=== PATIENT | male | born 1930 | race Caucasian/White ===

== ENCOUNTER 2018-07-11 21:00 | Inpatient (IN) | payer MEDICARE ==
[2018-07-11] MEDS ORDERED: Sodium Chloride 0.9% 1000 ML 1,000 ML IV STA (22:34)
[2018-07-11] MEDS ORDERED: Sodium Chloride 0.9% 1000 ML 1,000 ML ONE (23:01)
[2018-07-11 23:25] LABS: BASOPHIL % 0.2 % (0.0-0.4); Basophil (Absolute #) 0.01 (0-0.4); Eosinophil % 1.5 % (0.00-5.0); Eosinophil (Absolute #) 0.06 (0-0.5); Granulocyte Absolute (ANC) 2.87 (1.4-6.9); Granulocytes % 71.6 % (36.0-66.0); Hematocrit 37.3 % (42-50); Hemoglobin 11.9 gm/dl (12.5-18.0); Mean Cell Volume 101.4 fl (78-100); Mean Corpuscular Hemoglobin 32.3 pg (26-32); Mean Corpuscular Hgb Concent. 31.9 g/dl (32-36); Mean Platelet Volume 10.9 fl (6-9.5); Monocyte (Absolute #) 0.47 (0.0-1.3); Monocytes % 11.7 % (0.0-12.0); Platelet Count 124 K/mm3 (150-450); Red Blood Count 3.68 M/mm3 (4.1-5.6); Red Cell Distribution Width 13.2 % (11.5-14.0)
[2018-07-11 23:45] LABS: ALBUMIN 4.1 g/dL (3.5-5.0); ANION GAP 14.1 MEQ/L (5-15); BILIRUBIN,TOTAL 0.8 mg/dL (0.2-1.3); Calcium 8.9 mg/dL (8.4-10.2); Creatinine 1 2.02 mg/dL (0.66-1.25); Potassium 4.4 mmol/L (3.5-5.1); Total Protein 7.1 g/dL (6.3-8.2)
[2018-07-12 00:38] LABS: Appearance CLEAR (CLEAR); Bilirubin NEGATIVE (NEGATIVE); Blood MODERATE Ery/ul (0-5); Glucose NEGATIVE (NEGATIVE); Ketones NEGATIVE (NEGATIVE); Leukocyte Esterase NEGATIVE (NEGATIVE); Mucus SLIGHT /HPF (NEGATIVE); Nitrite NEGATIVE (NEGATIVE); Protein,Urine Dip NEGATIVE (Negative); RBC 0-2 /HPF (0-2); Specific Gravity 1.019 (1.005-1.025); Urobilinogen NEGATIVE mg/dL (0-1)
--- NOTE | 2018-07-12 01:47 | ERPHSYRPT ---
- History of Present Illness Historian: family Exam Limitations: other (Dementia) Patient Subjective Stated Complaint: Diarrhea and weakness. Blood in urine Triage Nursing Assessment: Patient brought back to ED via W/C and transferred to bed with assist of 2. Patient's family reports diarrhea since last night. Patient's family also reports increased weakness. Patient usually doesn't use a walker, but used one today. Patient hasn't urinated today. Patient Alert with confusion. Patient did wet bed this am and had blood mixed in urine. patient' s skin pink, warm and dry. Patient's lungs noted to be clear a/p matilda. BS X 4 and active. Physician History: Pt is a 87 y/o male that had a family gathering, where all of the family members developed severe diarrhea. Pt became weaker and weaker, and had no urine out put today. The pt has a h/o dementia, and has a palliative care specialist that is with him all the time, and family is keeping pt at his home. As pt was so weak , not at his baseline, and had no urine out put, the family brought him to the ED. Timing/Duration: day(s) Associated Symptoms: diarrhea, fatigue Allergies/Adverse Reactions: Penicillins Allergy (Verified 07/11/18 21:20) Home Medications: Colestipol HCl [Colestid] 2 tab PO HS 07/11/18 [History] Donepezil HCl 1 tab PO DAILY 07/11/18 [History] Lisinopril 1 tab PO DAILY 07/11/18 [History] Memantine HCl [Memantine HCl ER] 1 tab PO DAILY 07/11/18 [History] Hx Influenza Vaccination/Date Given: No Hx Pneumococcal Vaccination/Date Given: No Immunizations Up to Date: Yes - Review of Systems Constitutional: Other (Can't get ROS from the pt, secondary to dementia) - Past Medical History Pertinent Past Medical History: Yes Neurological History: Dementia ENT History: No Pertinent History Cardiac History: Hypertension Respiratory History: No Pertinent History Endocrine Medical History: No Pertinent History Musculoskeletal History: Arthritis GI Medical History: Gallbladder Disease Psycho-Social History: Depression - Past Surgical History Past Surgical History: Yes Neuro Surgical History: No Pertinent History Cardiac: No Pertinent History Respiratory: No Pertinent History Gastrointestinal: No Pertinent History, Cholecystectomy, Hemorrhoidectomy Genitourinary: No Pertinent History Musculoskeletal: Orthopedic Surgery Male Surgical History: No Pertinent History Other Surgical History: Matilda Knees- 1991. Gallbladder- 2015. Spinal fusion-1964 - Social History Smoking Status: Never smoker Exposure to second hand smoke: No Drug Use: none Patient Lives Alone: Yes - Nursing Vital Signs Nursing Vital Signs: Initial Vital Signs Temperature 97.8 F 07/11/18 21:21 Pulse Rate 63 07/11/18 21:21 Respiratory Rate 20 07/11/18 21:21 Blood Pressure 141/70 07/11/18 21:21 O2 Sat by Pulse Oximetry 94 L 07/11/18 21:21 Pain Scale Pain Intensity 0 - Physical Exam General Appearance: lethargy Respiratory Exam: normal breath sounds, lungs clear, No respiratory distress Cardiovascular Exam: regular rate/rhythm, normal heart sounds Gastrointestinal/Abdomen Exam: soft, No tenderness, No mass Neurologic Exam: other (Pt is not alert, and is not oriented. Can give minimal info.) SpO2: 98 - Course Nursing assessment & vital signs reviewed: Yes Ordered Tests: Active Orders 24 hr Category Date Time Status Catheter-Altoona Quinn STAT Care 07/11/18 22:34 Active IV Insertion STAT Care 07/11/18 22:34 Active AMYLASE Stat Lab 07/11/18 22:50 Completed BLOOD CULTURE Stat Lab 07/11/18 23:05 Received CBC W DIFF Stat Lab 07/11/18 22:50 Completed CMP Stat Lab 07/11/18 22:50 Completed LIPASE Stat Lab 07/11/18 22:50 Completed Lactic Acid Stat Lab 07/11/18 23:22 Completed Manual Differential NC Stat Lab 07/11/18 22:50 Completed UA W/RFX UR CULTURE Stat Lab 07/11/18 22:38 Completed Medication Summary Discontinued Medications Generic Name Dose Route Start Last Admin Trade Name Freq PRN Reason Stop Dose Admin Sodium Chloride 1,000 mls @ 999 mls/hr 07/11/18 22:34 07/12/18 01:04 Sodium Chloride 0.9% 1000 Ml IV 07/11/18 23:34 Infused .Q1H1M STA Infusion Sodium Chloride Confirm 07/11/18 23:01 Sodium Chloride 0.9% 1000 Ml Administered 07/11/18 23:02 Dose 1,000 mls @ ud .ROUTE .STK-MED ONE Lab/Rad Data: Laboratory Result Diagrams 07/11/18 22:50 07/11/18 22:50 Laboratory Results 07/11/18 07/11/1819 Range/Units 23:22 22:50 22:50 WBC 4.0 (4.0-10.5) K/mm3 RBC 3.68 L (4.1-5.6) M/mm3 Hgb 11.9 L (12.5-18.0) gm/dl Hct 37.3 L (42-50) % MCV 101.4 H (78-100) fl MCH 32.3 H (26-32) pg MCHC 31.9 L (32-36) g/dl RDW 13.2 (11.5-14.0) % Plt Count 124 L (150-450) K/mm3 MPV 10.9 H (6-9.5) fl Gran % 71.6 H (36.0-66.0) % Eos # (Auto) 0.06 (0-0.5) Absolute Lymphs (auto) 0.60 L (1.0-4.6) Absolute Monos (auto) 0.47 (0.0-1.3) Lymphocytes % 15.0 L (24.0-44.0) % Monocytes % 11.7 (0.0-12.0) % Eosinophils % 1.5 (0.00-5.0) % Basophils % 0.2 (0.0-0.4) % Absolute Granulocytes 2.87 (1.4-6.9) Basophils # 0.01 (0-0.4) Sodium 140 (137-145) mmol/L Potassium 4.4 (3.5-5.1) mmol/L Chloride 107 (98-107) mmol/L Carbon Dioxide 23 (22-30) mmol/L Anion Gap 14.1 (5-15) MEQ/L BUN 37 H (9-20) mg/dL Creatinine 2.02 H (0.66-1.25) mg/dL Estimated GFR 33.2 ML/MIN Glucose 101 (74-106) mg/dL Lactic Acid 1.0 (0.4-2.0) Calcium 8.9 (8.4-10.2) mg/dL Total Bilirubin 0.80 (0.2-1.3) mg/dL AST 24 (17-59) U/L ALT 16 (0-50) U/L Alkaline Phosphatase 113 (38-126) U/L Serum Total Protein 7.1 (6.3-8.2) g/dL Albumin 4.1 (3.5-5.0) g/dL Amylase 67 (30-110) U/L Lipase 22 L (23-300) U/L Urine Color (YELLOW) Urine Appearance (CLEAR) Urine pH (5-6) Ur Specific [place] (1.005-1.025) Urine Protein (Negative) Urine Ketones (NEGATIVE) Urine Blood (0-5) Zak/ul Urine Nitrite (NEGATIVE) Urine Bilirubin (NEGATIVE) Urine Urobilinogen (0-1) mg/dL Ur Leukocyte Esterase (NEGATIVE) Urine WBC (Auto) (0-5) /HPF Urine RBC (Auto) (0-2) /HPF U Epithel Cells (Auto) (FEW) /HPF Urine Bacteria (Auto) (NEGATIVE) /HPF Other Casts (Auto) (NEGATIVE) /LPF Urine Mucus (Auto) (NEGATIVE) /HPF Urine Culture Reflexed (NO) Urine Glucose (NEGATIVE) mg/dL 07/11/18 Range/Units 22:38 WBC (4.0-10.5) K/mm3 RBC (4.1-5.6) M/mm3 Hgb (12.5-18.0) gm/dl Hct (42-50) % MCV (78-100) fl MCH (26-32) pg MCHC (32-36) g/dl RDW (11.5-14.0) % Plt Count (150-450) K/mm3 MPV (6-9.5) fl Gran % (36.0-66.0) % Eos # (Auto) (0-0.5) Absolute Lymphs (auto) (1.0-4.6) Absolute Monos (auto) (0.0-1.3) Lymphocytes % (24.0-44.0) % Monocytes % (0.0-12.0) % Eosinophils % (0.00-5.0) % Basophils % (0.0-0.4) % Absolute Granulocytes (1.4-6.9) Basophils # (0-0.4) Sodium (137-145) mmol/L Potassium (3.5-5.1) mmol/L Chloride (98-107) mmol/L Carbon Dioxide (22-30) mmol/L Anion Gap (5-15) MEQ/L BUN (9-20) mg/dL Creatinine (0.66-1.25) mg/dL Estimated GFR ML/MIN Glucose (74-106) mg/dL Lactic Acid (0.4-2.0) Calcium (8.4-10.2) mg/dL Total Bilirubin (0.2-1.3) mg/dL AST (17-59) U/L ALT (0-50) U/L Alkaline Phosphatase (38-126) U/L Serum Total Protein (6.3-8.2) g/dL Albumin (3.5-5.0) g/dL Amylase (30-110) U/L Lipase (23-300) U/L Urine Color YELLOW (YELLOW) Urine Appearance CLEAR (CLEAR) Urine pH 5.0 (5-6) Ur Specific [place] 1.019 (1.005-1.025) Urine Protein NEGATIVE (Negative) Urine Ketones NEGATIVE (NEGATIVE) Urine Blood MODERATE (0-5) Zak/ul Urine Nitrite NEGATIVE (NEGATIVE) Urine Bilirubin NEGATIVE (NEGATIVE) Urine Urobilinogen NEGATIVE (0-1) mg/dL Ur Leukocyte Esterase NEGATIVE (NEGATIVE) Urine WBC (Auto) NONE (0-5) /HPF Urine RBC (Auto) 0-2 (0-2) /HPF U Epithel Cells (Auto) NONE (FEW) /HPF Urine Bacteria (Auto) NONE (NEGATIVE) /HPF Other Casts (Auto) NEGATIVE (NEGATIVE) /LPF Urine Mucus (Auto) SLIGHT (NEGATIVE) /HPF Urine Culture Reflexed NO (NO) Urine Glucose NEGATIVE (NEGATIVE) mg/dL - Progress Progress: unchanged Progress Note: 07/12/18 01:48 Pt had IVF bolus given. Labs showed increased sCr to 2, and very low urine out put. Quinn was anchored for strict I/O. Will admit pt to Dr Coppola, for acute kidney injury. Discussed with : Abdon Will see patient in: hospital (full admit) Counseled pt/family regarding: lab results, diagnosis - Departure Time of Disposition: 01:50 Departure Disposition: In-patient Admission Clinical Impression: SIENNA (acute kidney injury) Condition: Fair Critical Care Time: No Referrals: THELMA RICO [Primary Care Provider] -
[2018-07-12] MEDS ORDERED: Zofran 4 MG/2 ML VIAL IV PRN (01:51)
[2018-07-12] MEDS: Sodium Chloride 0.9% 1000 ML 1,000 ML IV SCH ×2 (02:47→14:38)
[2018-07-12 05:29] LABS: BASOPHIL % 0.2 % (0.0-0.4); Basophil (Absolute #) 0.01 (0-0.4); Eosinophil % 2.4 % (0.00-5.0); Granulocyte Absolute (ANC) 2.54 (1.4-6.9); Granulocytes % 60.9 % (36.0-66.0); Hematocrit 35.2 % (42-50); Hemoglobin 11.3 gm/dl (12.5-18.0); Lymphocyte (Absolute #) 0.95 (1.0-4.6); Lymphocytes % 22.8 % (24.0-44.0); Mean Cell Volume 101.4 fl (78-100); Mean Corpuscular Hgb Concent. 32.1 g/dl (32-36); Mean Platelet Volume 10.6 fl (6-9.5); Monocyte (Absolute #) 0.57 (0.0-1.3); Monocytes % 13.7 % (0.0-12.0); Platelet Count 116 K/mm3 (150-450); Red Blood Count 3.47 M/mm3 (4.1-5.6); Red Cell Distribution Width 13.1 % (11.5-14.0); White Blood Count 4.2 K/mm3 (4.0-10.5)
[2018-07-12 05:41] LABS: Mean Corpuscular Hemoglobin 32.5 pg (26-32)
[2018-07-12 06:03] LABS: ALBUMIN 3.7 g/dL (3.5-5.0); ANION GAP 12.1 MEQ/L (5-15); BILIRUBIN,TOTAL 0.7 mg/dL (0.2-1.3); Calcium 8.4 mg/dL (8.4-10.2); Creatinine 1 1.83 mg/dL (0.66-1.25); Potassium 4.5 mmol/L (3.5-5.1); Total Protein 6.5 g/dL (6.3-8.2)
--- NOTE | 2018-07-12 08:32 | PCM.HP ---
History of Present Illness - Chief Complaint Chief Complaint: Acute kidney injury, dehydration, diarrhea History of Present Illness: is a 87 year old male who reported to the ER with complaints of diarrhea x 2 days with weakness. He has no local physician, has underlying dementia and lives alone but has caregivers and son lives next door. Multiple family members have had GI illness after a family get together last week. He denies any pain this morning, he is pleasant but not oriented to place or time. - Review of Systems Constitutional: Weakness, No Fever, No Chills Respiratory: No Cough, No Short Of Breath Cardiac: No Chest Pain, No Edema, No Syncope Abdominal/Gastrointestinal: Nausea, Vomiting, Diarrhea, No Abdominal Pain Genitourinary Symptoms: No Dysuria Skin: No Rash All Other Systems: Reviewed and Negative Medications & Allergies Home Medications: Home Medication List Colestipol HCl [Colestid] 2 tab PO 199907/11/18 [History Confirmed 07/12/18] Donepezil HCl 1 tab PO 199907/11/18 [History Confirmed 07/12/18] Lisinopril 1 tab PO 199907/11/18 [History Confirmed 07/12/18] Memantine HCl [Memantine HCl ER] 1 tab PO 199907/11/18 [History Confirmed 07/12] Acetaminophen [Tylenol Arthritis] 650 mg PO TID 07/12/18 [History Confirmed ] Allergies/Adverse Reactions: Allergies Allergy/AdvReac Type Severity Reaction Status Date / Time Penicillins Allergy Verified 07/11/18 21:20 - Past Medical History Past Medical History: Yes Neurological History: Dementia ENT History: No Pertinent History Cardiac History: Hypertension Respiratory History: No Pertinent History Endocrine Medical History: No Pertinent History Musculoskelatal History: Arthritis GI Medical History: Gallbladder Disease Pyscho-Social History: Depression Comment: C-diff - Past Surgical History Past Surgical History: Yes Neuro Surgical History: No Pertinent History Cardiac History: No Pertinent History Respiratory Surgery: No Pertinent History GI Surgical History: No Pertinent History, Cholecystectomy, Hemorrhoidectomy Genitourinary Surgical Hx: No Pertinent History Musculskeletal Surgical Hx: Orthopedic Surgery Male Surgical History: No Pertinent History Other Surgical History: Jason Knees- 1991. Gallbladder- 2014. Spinal fusion-1964 - Social History Smoking Status: Former smoker Exposure to second hand smoke: No Alcohol: None Drug Use: none - Physical Exam Vital Signs: Vital Signs - 24 hr Temp Pulse Resp BP Pulse Ox 07/12/18 07:30 98 F 82 20 140/78 96 07/12/18 02:49 97.9 F 69 18 145/79 95 07/12/18 01:50 98 07/12/18 01:42 65 18 95 07/12/18 00:47 65 16 143/87 98 07/11/18 21:21 97.8 F 63 20 141/70 94 L General Appearance: no apparent distress, thin Neurologic Exam: alert, cooperative, No oriented x 3 Ears, Nose, Throat Exam: dry mucous membranes Neck Exam: normal inspection, non-tender, supple, full range of motion Respiratory Exam: normal breath sounds, lungs clear, No respiratory distress Cardiovascular Exam: regular rate/rhythm, normal heart sounds, normal peripheral pulses Gastrointestinal/Abdomen Exam: soft, normal bowel sounds, No tenderness, No mass Extremity Exam: normal inspection, normal range of motion, pelvis stable Skin Exam: normal color, warm, dry, No rash Results - Labs Lab/Micro Results: Lab Results-Last 24 Hours 07/11/18 07/11/18 07/11/18 Range/Units 22:38 22:50 22:50 WBC 4.0 (4.0-10.5) K/mm3 RBC 3.68 L (4.1-5.6) M/mm3 Hgb 11.9 L (12.5-18.0) gm/dl Hct 37.3 L (42-50) % MCV 101.4 H (78-100) fl MCH 32.3 H (26-32) pg MCHC 31.9 L (32-36) g/dl RDW 13.2 (11.5-14.0) % Plt Count 124 L (150-450) K/mm3 MPV 10.9 H (6-9.5) fl Gran % 71.6 H (36.0-66.0) % Eos # (Auto) 0.06 (0-0.5) Absolute Lymphs (auto) 0.60 L (1.0-4.6) Absolute Monos (auto) 0.47 (0.0-1.3) Lymphocytes % 15.0 L (24.0-44.0) % Monocytes % 11.7 (0.0-12.0) % Eosinophils % 1.5 (0.00-5.0) % Basophils % 0.2 (0.0-0.4) % Absolute Granulocytes 2.87 (1.4-6.9) Basophils # 0.01 (0-0.4) Sodium 140 (137-145) mmol/L Potassium 4.4 (3.5-5.1) mmol/L Chloride 107 (98-107) mmol/L Carbon Dioxide 23 (22-30) mmol/L Anion Gap 14.1 (5-15) MEQ/L BUN 37 H (9-20) mg/dL Creatinine 2.02 H (0.66-1.25) mg/dL Estimated GFR 33.2 ML/MIN Glucose 101 (74-106) mg/dL Lactic Acid (0.4-2.0) Calcium 8.9 (8.4-10.2) mg/dL Total Bilirubin 0.80 (0.2-1.3) mg/dL AST 24 (17-59) U/L ALT 16 (0-50) U/L Alkaline Phosphatase 113 (38-126) U/L Serum Total Protein 7.1 (6.3-8.2) g/dL Albumin 4.1 (3.5-5.0) g/dL Amylase 67 (30-110) U/L Lipase 22 L (23-300) U/L Urine Color YELLOW (YELLOW) Urine Appearance CLEAR (CLEAR) Urine pH 5.0 (5-6) Ur Specific [place] 1.019 (1.005-1.025) Urine Protein NEGATIVE (Negative) Urine Ketones NEGATIVE (NEGATIVE) Urine Blood MODERATE (0-5) Zak/ul Urine Nitrite NEGATIVE (NEGATIVE) Urine Bilirubin NEGATIVE (NEGATIVE) Urine Urobilinogen NEGATIVE (0-1) mg/dL Ur Leukocyte Esterase NEGATIVE (NEGATIVE) Urine WBC (Auto) NONE (0-5) /HPF Urine RBC (Auto) 0-2 (0-2) /HPF U Epithel Cells (Auto) NONE (FEW) /HPF Urine Bacteria (Auto) NONE (NEGATIVE) /HPF Other Casts (Auto) NEGATIVE (NEGATIVE) /LPF Urine Mucus (Auto) SLIGHT (NEGATIVE) /HPF Urine Culture Reflexed NO (NO) Urine Glucose NEGATIVE (NEGATIVE) mg/dL 07/11/18 07/12/18 07/12/18 Range/Units 23:22 05:20 05:20 WBC 4.2 (4.0-10.5) K/mm3 RBC 3.47 L (4.1-5.6) M/mm3 Hgb 11.3 L (12.5-18.0) gm/dl Hct 35.2 L (42-50) % MCV 101.4 H (78-100) fl MCH 32.5 H (26-32) pg MCHC 32.1 (32-36) g/dl RDW 13.1 (11.5-14.0) % Plt Count 116 L (150-450) K/mm3 MPV 10.6 H (6-9.5) fl Gran % 60.9 (36.0-66.0) % Eos # (Auto) 0.10 (0-0.5) Absolute Lymphs (auto) 0.95 L (1.0-4.6) Absolute Monos (auto) 0.57 (0.0-1.3) Lymphocytes % 22.8 L (24.0-44.0) % Monocytes % 13.7 H (0.0-12.0) % Eosinophils % 2.4 (0.00-5.0) % Basophils % 0.2 (0.0-0.4) % Absolute Granulocytes 2.54 (1.4-6.9) Basophils # 0.01 (0-0.4) Sodium 140 (137-145) mmol/L Potassium 4.5 (3.5-5.1) mmol/L Chloride 111 H (98-107) mmol/L Carbon Dioxide 21 L (22-30) mmol/L Anion Gap 12.1 (5-15) MEQ/L BUN 33 H (9-20) mg/dL Creatinine 1.83 H (0.66-1.25) mg/dL Estimated GFR 37.2 ML/MIN Glucose 93 (74-106) mg/dL Lactic Acid 1.0 (0.4-2.0) Calcium 8.4 (8.4-10.2) mg/dL Total Bilirubin 0.70 (0.2-1.3) mg/dL AST 23 (17-59) U/L ALT 15 (0-50) U/L Alkaline Phosphatase 106 (38-126) U/L Serum Total Protein 6.5 (6.3-8.2) g/dL Albumin 3.7 (3.5-5.0) g/dL Amylase (30-110) U/L Lipase (23-300) U/L Urine Color (YELLOW) Urine Appearance (CLEAR) Urine pH (5-6) Ur Specific [place] (1.005-1.025) Urine Protein (Negative) Urine Ketones (NEGATIVE) Urine Blood (0-5) Zak/ul Urine Nitrite (NEGATIVE) Urine Bilirubin (NEGATIVE) Urine Urobilinogen (0-1) mg/dL Ur Leukocyte Esterase (NEGATIVE) Urine WBC (Auto) (0-5) /HPF Urine RBC (Auto) (0-2) /HPF U Epithel Cells (Auto) (FEW) /HPF Urine Bacteria (Auto) (NEGATIVE) /HPF Other Casts (Auto) (NEGATIVE) /LPF Urine Mucus (Auto) (NEGATIVE) /HPF Urine Culture Reflexed (NO) Urine Glucose (NEGATIVE) mg/dL Assessment/Plan (1) SIENNA (acute kidney injury) Current Visit: Yes Status: Acute Assessment & Plan: related to dehydration, slight improvement since arrival, continue gentle hydration. Code(s): N17.9 - ACUTE KIDNEY FAILURE, UNSPECIFIED (2) Dehydration Current Visit: Yes Status: Acute Assessment & Plan: secondary to viral GI illness at this time based on exam and history Code(s): E86.0 - DEHYDRATION (3) Weakness Current Visit: Yes Status: Acute Code(s): R53.1 - WEAKNESS (4) Dementia Current Visit: Yes Status: Acute Code(s): F03.90 - UNSPECIFIED DEMENTIA WITHOUT BEHAVIORAL DISTURBANCE
[2018-07-12] MEDS ORDERED: TYLENOL 325 MG PO SCH (10:00)
[2018-07-12] MEDS ORDERED: NON-FORMULARY ITEM (Acetaminophen [Tylenol Arthritis] 650 MG) PO SCH (10:00)
[2018-07-12] MEDS ORDERED: MEDICATION INTERVENTION PO SCH (10:00)
[2018-07-12] MEDS: ENOXAPARIN SODIUM SQ SCH (10:47)
[2018-07-12] MEDS: Namenda 5 MG PO SCH ×2 (10:47→22:20)
[2018-07-12] MEDS: TYLENOL 325 MG PO SCH ×2 (14:39→22:21)
[2018-07-12 14:45] LABS: 027 TOX PROD PRESUMPTIVE NEGATIVE (NEGATIVE); TOXIGENIC C. DIFF ORG POSITIVE (NEGATIVE)
[2018-07-12] MEDS: FLAGYL 500 MG IVPB 500 MG/100 ML BAG IV SCH ×2 (17:28→23:45)
[2018-07-12] MEDS ORDERED: MEMANTINE HCL PO SCH (20:00)
[2018-07-12] MEDS ORDERED: COLESTIPOL HCL PO SCH (20:00)
[2018-07-12] MEDS: Aricept 10 MG PO SCH (22:20)
[2018-07-12] MEDS: Zestril 5 MG PO SCH (22:20)
[2018-07-13] MEDS: Sodium Chloride 0.9% 1000 ML 1,000 ML IV SCH ×2 (03:20→16:09)
[2018-07-13 05:38] LABS: BASOPHIL % 0.3 % (0.0-0.4); Basophil (Absolute #) 0.01 (0-0.4); Eosinophil % 3.8 % (0.00-5.0); Eosinophil (Absolute #) 0.14 (0-0.5); Granulocyte Absolute (ANC) 2.06 (1.4-6.9); Granulocytes % 56.3 % (36.0-66.0); Hematocrit 35.6 % (42-50); Hemoglobin 11.5 gm/dl (12.5-18.0); Lymphocyte (Absolute #) 0.92 (1.0-4.6); Lymphocytes % 25.1 % (24.0-44.0); Mean Cell Volume 100.8 fl (78-100); Mean Corpuscular Hgb Concent. 32.3 g/dl (32-36); Mean Platelet Volume 10.9 fl (6-9.5); Monocyte (Absolute #) 0.53 (0.0-1.3); Monocytes % 14.5 % (0.0-12.0); Platelet Count 116 K/mm3 (150-450); Red Blood Count 3.53 M/mm3 (4.1-5.6); Red Cell Distribution Width 12.8 % (11.5-14.0); White Blood Count 3.7 K/mm3 (4.0-10.5)
[2018-07-13 05:42] LABS: Mean Corpuscular Hemoglobin 32.5 pg (26-32)
[2018-07-13 06:05] LABS: ALBUMIN 3.5 g/dL (3.5-5.0); BILIRUBIN,TOTAL 0.7 mg/dL (0.2-1.3); Calcium 8.2 mg/dL (8.4-10.2); Creatinine 1 1.77 mg/dL (0.66-1.25); Potassium 4.3 mmol/L (3.5-5.1); Total Protein 6.2 g/dL (6.3-8.2)
[2018-07-13] MEDS: FLAGYL 500 MG IVPB 500 MG/100 ML BAG IV SCH ×4 (06:06→23:32)
--- NOTE | 2018-07-13 08:13 | PCM.NOTE ---
Date and Time: 07/13/18810 Subjective Assessment: still having diarrhea, tolerating liquids. he is very confused and weak Objective Exam General Appearance: no apparent distress, alert Skin Exam: normal color, warm, dry Respiratory Exam: normal breath sounds, lungs clear, No respiratory distress Cardiovascular Exam: regular rate/rhythm, normal heart sounds Gastrointestinal/Abdomen Exam: soft, No tenderness, No mass Extremity Exam: normal inspection, normal range of motion OBJECTIVE DATA Vital Signs: Vital Signs - 24 hr Temp Pulse Resp BP Pulse Ox 07/13/18 07:48 98.1 F 54 L 20 132/74 92 L 07/13/18 04:10 97.9 F 76 18 128/72 97 07/13/18 00:10 97.4 F 65 18 120/78 96 07/12/18 20:05 97.7 F 68 20 127/76 97 07/12/18 17:05 20 97 07/12/18 12:46 97.8 F 65 20 136/77 96 Pain Assessment - Last Documented Pain Intensity 0 Pain Scale Used FLACC Intake and Output: Intake & Output 07/10/18 07/11/18 07/12/18 07/13/18 11:59 11:59 11:59 11:59 Intake Total 0 3595 Output Total 2700 Balance 0 895 Weight 92.4 kg 92 kg Lab Results: Lab Results-Last 24 Hours 07/12/18 07/13/18 07/13/18 Range/Units 12:38 05:15 05:15 WBC 3.7 L (4.0-10.5) K/mm3 RBC 3.53 L (4.1-5.6) M/mm3 Hgb 11.5 L (12.5-18.0) gm/dl Hct 35.6 L (42-50) % MCV 100.8 H (78-100) fl MCH 32.5 H (26-32) pg MCHC 32.3 (32-36) g/dl RDW 12.8 (11.5-14.0) % Plt Count 116 L (150-450) K/mm3 MPV 10.9 H (6-9.5) fl Gran % 56.3 (36.0-66.0) % Eos # (Auto) 0.14 (0-0.5) Absolute Lymphs (auto) 0.92 L (1.0-4.6) Absolute Monos (auto) 0.53 (0.0-1.3) Lymphocytes % 25.1 (24.0-44.0) % Monocytes % 14.5 H (0.0-12.0) % Eosinophils % 3.8 (0.00-5.0) % Basophils % 0.3 (0.0-0.4) % Absolute Granulocytes 2.06 (1.4-6.9) Basophils # 0.01 (0-0.4) Sodium 139 (137-145) mmol/L Potassium 4.3 (3.5-5.1) mmol/L Chloride 110 H (98-107) mmol/L Carbon Dioxide 19 L (22-30) mmol/L Anion Gap 14.0 (5-15) MEQ/L BUN 25 H (9-20) mg/dL Creatinine 1.77 H (0.66-1.25) mg/dL Estimated GFR 38.7 ML/MIN Glucose 83 (74-106) mg/dL Calcium 8.2 L (8.4-10.2) mg/dL Total Bilirubin 0.70 (0.2-1.3) mg/dL AST 20 (17-59) U/L ALT 14 (0-50) U/L Alkaline Phosphatase 98 (38-126) U/L Serum Total Protein 6.2 L (6.3-8.2) g/dL Albumin 3.5 (3.5-5.0) g/dL Stl C. diff Tox B Gene POSITIVE (NEGATIVE) C.difficile [id number] PRESUMPTIVE NEGATIVE (NEGATIVE) Multi-Disciplinary Progress Notes: Multi-Disciplinary Progress Notes 07/12/18 09:52 Pharmacy Note by Darron Daley Patient has low platelets: Please review if Lovenox is needed. Initialized on 07/12/18 09:52 - END OF NOTE Assessment/Plan (1) Clostridium difficile colitis Current Visit: Yes Status: Acute Assessment & Plan: on flagyl, will likely need rehab stay at [facility] when discharged. diarrhea improved, will advance diet (2) SIENNA (acute kidney injury) Current Visit: Yes Status: Acute Assessment & Plan: improving with hydration Code(s): N17.9 - ACUTE KIDNEY FAILURE, UNSPECIFIED (3) Dehydration Current Visit: Yes Status: Acute Code(s): E86.0 - DEHYDRATION (4) Weakness Current Visit: Yes Status: Acute Code(s): R53.1 - WEAKNESS (5) Dementia Current Visit: Yes Status: Acute Code(s): F03.90 - UNSPECIFIED DEMENTIA WITHOUT BEHAVIORAL DISTURBANCE
[2018-07-13] MEDS: TYLENOL 325 MG PO SCH ×3 (10:02→23:32)
[2018-07-13] MEDS: Namenda 5 MG PO SCH ×2 (10:02→21:16)
[2018-07-13] MEDS: ENOXAPARIN SODIUM SQ SCH (10:02)
[2018-07-13 11:54] LABS: Source: Feces
[2018-07-13 14:18] LABS: Giardia Antigen EIA Negative (Negative)
[2018-07-13] MEDS: Zestril 5 MG PO SCH (21:16)
[2018-07-13] MEDS: Aricept 10 MG PO SCH (21:17)
[2018-07-14] MEDS: Sodium Chloride 0.9% 1000 ML 1,000 ML IV SCH ×2 (04:40→04:48)
[2018-07-14 05:18] LABS: BASOPHIL % 0.2 % (0.0-0.4); Basophil (Absolute #) 0.01 (0-0.4); Eosinophil % 2.8 % (0.00-5.0); Eosinophil (Absolute #) 0.14 (0-0.5); Granulocytes % 68.9 % (36.0-66.0); Hematocrit 34.2 % (42-50); Hemoglobin 11.2 gm/dl (12.5-18.0); Lymphocyte (Absolute #) 0.81 (1.0-4.6); Lymphocytes % 15.9 % (24.0-44.0); Mean Cell Volume 98.8 fl (78-100); Mean Corpuscular Hgb Concent. 32.7 g/dl (32-36); Mean Platelet Volume 10.9 fl (6-9.5); Monocyte (Absolute #) 0.62 (0.0-1.3); Monocytes % 12.2 % (0.0-12.0); Platelet Count 126 K/mm3 (150-450); Red Blood Count 3.46 M/mm3 (4.1-5.6); Red Cell Distribution Width 12.6 % (11.5-14.0); White Blood Count 5.1 K/mm3 (4.0-10.5)
[2018-07-14 05:29] LABS: ALBUMIN 3.4 g/dL (3.5-5.0); ANION GAP 12.3 MEQ/L (5-15); BILIRUBIN,TOTAL 0.5 mg/dL (0.2-1.3); Calcium 8.2 mg/dL (8.4-10.2); Creatinine 1 1.68 mg/dL (0.66-1.25); Potassium 4.1 mmol/L (3.5-5.1); Total Protein 6.1 g/dL (6.3-8.2)
[2018-07-14 05:35] LABS: Mean Corpuscular Hemoglobin 32.3 pg (26-32)
[2018-07-14] MEDS: FLAGYL 500 MG IVPB 500 MG/100 ML BAG IV SCH ×2 (05:57→11:30)
[2018-07-14] MEDS: TYLENOL 325 MG PO SCH ×3 (10:00→21:42)
[2018-07-14] MEDS: Namenda 5 MG PO SCH ×2 (10:00→21:42)
[2018-07-14] MEDS: ENOXAPARIN SODIUM SQ SCH (10:00)
[2018-07-14] MEDS: Aricept 10 MG PO SCH (21:42)
[2018-07-14] MEDS: Zestril 5 MG PO SCH (21:42)
[2018-07-15] MEDS ORDERED: Sodium Chloride 0.9% 1000 ML 1,000 ML ONE (04:14)
[2018-07-15] MEDS ORDERED: Sodium Chloride 0.9% 10 ML FLUSH Syringe IV PRN (08:30)
[2018-07-15] MEDS: ENOXAPARIN SODIUM SQ SCH (08:51)
[2018-07-15] MEDS: TYLENOL 325 MG PO SCH (08:51)
[2018-07-15] MEDS: Namenda 5 MG PO SCH (08:51)
--- NOTE | 2018-07-15 10:29 | PCM.DCORD ---
- Discharge Discharge Date: 07/15/18 Disposition: DC TO ANY "OTHER" USP Prescriptions: Continue Donepezil HCl 1 tab PO 2000 Memantine HCl [Memantine HCl ER] 1 tab PO 1999 Lisinopril 1 tab PO 1999 Colestipol HCl [Colestid] 2 tab PO 2000 Acetaminophen 325 mg [Tylenol 325 mg] 325 mg PO TID Additional Instructions: OK to DC to [facility] for Rehab stay Follow up with: THELMA RICO [Primary Care Provider] - 1 Week
[2018-07-15 11:52] VITALS: BP 128/69; PULSE 68; O2SAT 96
[2018-07-15] MEDS ORDERED: Sodium Chloride 0.9% 10 ML FLUSH Syringe IV SCH (14:00)
--- NOTE | 2018-07-15 20:01 | XRAY ---
Indication: custodial placement. Comparison: None PA/lateral chest demonstrates lingular infiltrate versus atelectasis. Remaining heart and lungs unremarkable. Bony thorax intact with moderate degenerative spondylosis and mild dextroscoliosis. Comment: Preliminary interpretation was made by [facility]. No critical discrepancy.
--- NOTE | 2018-07-17 11:15 | DS ---
DISCHARGE DIAGNOSES: 1) DEHYDRATION. 2) HYPERTENSION. 3) ACUTE RENAL INJURY ON CHRONIC RENAL INSUFFICIENCY. 4) WEAKNESS. HISTORY: The patient is an 87 year-old white male patient who developed diarrhea after having a family get together. Apparently several other family members also had this diarrheal episode along with some vomiting. The patient was brought to the hospital. Stool sample was positive for Clostridium difficile in the stool however the toxin was negative. He was initially started on Flagyl. However by the morning of 07/14/2018 he had no bowel movement in the last 12 hours and was feeling good. The Flagyl was discontinued. He was basically given IV fluids. It was our understanding that the patient is living by himself in the home at night. He has no one to care for him and it is obvious at this point he will not be able to go back home and care for himself without someone staying with him 09/01. The family states this cannot happen. He is therefore going for rehab stay for strengthening and hopefully eventually returning home again. LAB DATA AND TESTS: The patient's laboratory studies showed a lactic acid of 1.0. His initial BUN was 37, creatinine 2.02, glucose 101. Electrolytes and liver enzymes were normal. Amylase and lipase were normal. UA showed specific gravity 1.019. He did have moderate blood in the urine. He did have a Quinn catheter for a while which we discontinued on 07/14/2018 and he has been able to urinate since that time. His initial white blood cell count was 4,000. His hemoglobin was 11.9, PLT count was slightly low at 124,000. There appeared to be no significant left shift with 60.9% granulocytes. He did have 13.7% monocytes. His BUN was 21 and creatinine down to 1.6 on the morning of 07/14/2018. HOSPITAL COURSE: We discontinued his Quinn catheter and IV fluids and he was able to sustain himself with oral intake. The decision now has been made to transfer the patient to [facility] for physical therapy for strengthening with again hopeful return home. His medications upon discharge at the present time he is on benazepril 10 mg daily. He has been receiving subcutaneous Lovenox at 40 mg a day, lisinopril 5 mg a day, Namenda 10 mg a day and that is the extent of his list of medications presently that he will be discharged on.
== END 2018-07-15 14:35 | DRG 641 ==
LOC: ED 21:00 → MED SURG 07-12 02:28
PROVIDERS: ADMIT Family Medicine; ATTEND Family Medicine
DX: E86.0 Dehydration (principal); R19.7 Diarrhea, unspecified; N17.9 Acute kidney failure, unspecified; A04.72 Enterocolitis due to Clostridium difficile, not specified as recurrent; I10 Essential (primary) hypertension; R11.2 Nausea with vomiting, unspecified; R53.83 Other fatigue; R53.1 Weakness; F03.90 Unspecified dementia, unspecified severity, without behavioral disturbance, psychotic disturbance, mood disturbance, and anxiety; Z79.899 Other long term (current) drug therapy
CPT/HCPCS: 36000; 36415; 51702; 71046; 80053; 81001; 82150; 83605; 83690; 85025; 87040; 87177; 87209; 87493; 96360; 99285; J1650; A9270-GY